=== PATIENT | male | born 1955 | race Caucasian/White ===

== ENCOUNTER → 2019-07-06 | Day surgery (SDC) | payer MEDICARE ==
[~2019-07-06] MED LIST: AMLO10TA8 PO; ATOR10TA60 PO; IPRA4AER IH; LIDOCAINE 1% Multi-Dose 20 ML VIAL. INJ ONE; LIDOCAINE 1%/EPI 1:100,000 20 ML VIAL. INJ ONE; LIDOCAINE 1%/EPI 1:100,000 20 ML VIAL. ONE; LISI10TA2 PO; METO50TA6 PO
[2019-07-06 11:50] VITALS: BP 139/61
--- NOTE | 2019-07-06 12:38 | PDOC4 ---
Operative Note Operative Note Date: 07/06/2019 Preoperative diagnosis: Left upper back mass Postoperative diagnosis: Same Procedure: Excision of back mass Surgeon: Shon Dictation: Patient is a 64-year-old was complained of a enlarging mass on his left upper back from proximally 17 years appears to be a sebaceous cyst. Seizure of excision was explained to the patient detail risk benefits were also discussed including bleeding infection alternatives to this procedure also dis cussed with the patient seemed to understand and gave both verbal and written consent had the procedure performed per patient was taken to the minors room in a sitting position the area was prepped and draped usual sterile fashion using ChloraPrep. Area around the mass was injected with 1% lidocaine with epinephrine once this was anesthetized elliptical incision was made with 15 blade scalpel was carried down through subcutaneous tissues excising the mass completely and sent it for pathology. The wound was then closed in 2 layers a deep layer single interrupted 3-0 Vicryl sutures and the skin was approximate for septic and a Monocryl Mastisol Steri-Strips and island dressing were applied. Patient tolerated procedure well and was discharged home in stable condition to follow up in 2 weeks estimate blood loss 5 mL CONSTANTINO SINGH MD Jul 06, 2019 12:38
--- NOTE | 2019-07-08 10:07 | PATHOLOGY ---
[facility] Accession Number: [id number] . 01 Material submitted: . back - MASS, BACK . 01 Clinical history: . Sebaceous cyst back . 02 Diagnosis: Skin and subcutaneous tissue, back mass, excision: - Follicular cyst, infundibular type. . ([facility]:mm; 07/07/2019) [facility] 07/07/2019 1645 Local . 02 Comment: There is no evidence of malignancy. . ([facility]:mm; 07/07/2019) . 02 Electronically signed: . Benny Roberto MD, Pathologist NPI- [id number] . 01 Gross description: . The specimen is received in formalin, labeled "Adolfo, Mickey, mass back" and consists of an unoriented pink-gallegos skin ellipse measuring 4.4 x 2.3 cm excised to a depth of 1.0 cm. Present on the surface is a pink-gallegos nodule with a central pore measuring 0.4 x 0.4 cm with protruding gallegos sebaceous material. Sectioning reveals a cyst containing soft gallegos-brown material measuring 2.8 x 2.3 cm. It Programmer sections are submitted in A1-A2. ([facility]; 07/06/2019) SY[facility]/SYU 07/06/2019 1718 Local . 02 Pathologist provided ICD-10: L72.9 . 02 CPT . 341360 Specimen Comment: A courtesy copy of this report has been sent to [phone], [phone] Specimen Comment: [id number] Specimen Comment: Report sent to / DR BILLINGSLEY Performed at: [address], [place], [place] [id number] MD Prasanth Arauz MD Phone: [phone] Performed at: 02 [facility] [address] [place], [place] [id number] MD Benny Roberto MD Phone: [phone]
== END ==
LOC: SURG 11:11
PROVIDERS: ATTEND Surgery
DX: R22.2 Localized swelling, mass and lump, trunk (principal); L72.8 Other follicular cysts of the skin and subcutaneous tissue; I10 Essential (primary) hypertension; E78.00 Pure hypercholesterolemia, unspecified; J45.909 Unspecified asthma, uncomplicated; E66.3 Overweight; Z68.26 Body mass index [BMI] 26.0-26.9, adult
CPT/HCPCS: 11406; 12032; 88304; J3490

== ENCOUNTER → 2019-07-21 | Day surgery (SDC) | payer MEDICARE, OTHER ==
[~2019-07-21] MED LIST changes: +IV RINGERS,LACTATED 1000ML 1,000 ML IV SCH; -LIDOCAINE 1% Multi-Dose 20 ML VIAL. INJ ONE; -LIDOCAINE 1%/EPI 1:100,000 20 ML VIAL. INJ ONE; -LIDOCAINE 1%/EPI 1:100,000 20 ML VIAL. ONE; +PROPOFOL 40 ML IV ONE
[2019-07-21 07:58] VITALS: BP 112/58
--- NOTE | 2019-07-21 09:49 | CONS ---
DATE OF CONSULTATION: 07/21/2019 REFERRING PHYSICIAN: Jonathan Ackerman MD REASON FOR CONSULTATION: History of colonic polyps and family history of colon cancer. HISTORY OF PRESENT ILLNESS: A 64-year-old male whose past medical history is significant for hypertension and hyperlipidemia as well as colonic polyps, is seen for interval exam. Bowel habits have been regular without diarrhea or constipation. There has been no melena and/or hematochezia. Weight and appetite are stable. He is otherwise without additional complaints. PAST MEDICAL HISTORY: Colonic polyps, hypertension and hyperlipidemia. ALLERGIES: TO PENICILLIN. MEDICATIONS: Include amlodipine, atorvastatin, albuterol, lisinopril and metoprolol. FAMILY AND SOCIAL HISTORY: Significant for colon cancer with his mother. SOCIAL HISTORY: He is a nonsmoker, nondrinker. PAST SURGICAL HISTORY: Tonsillectomy. REVIEW OF SYSTEMS: As per records. PHYSICAL EXAMINATION: GENERAL: Reveals a well-nourished, well-developed male who is alert, cooperative, in no acute distress. VITAL SIGNS: Temperature 98, pulse 80 and respiratory rate 18. HEENT: Normocephalic, atraumatic head. Pupils and extraocular muscles are not tested. Sclerae are anicteric. NECK: Supple. LUNGS: Clear. CARDIOVASCULAR: Reveals an S1, S2 without S3, S4 or appreciable murmur. ABDOMEN: Reveals soft abdomen, normal bowel sounds, without appreciable hepatosplenomegaly. EXTREMITIES: Reveals no cyanosis, clubbing or edema. IMPRESSION: History of colonic polyps. Surveillance exam is recommended at this time with a family history of colon cancer. Risks and benefits have been discussed with the patient including risk of hemorrhage and perforation requiring operation and he is willing to proceed. ISAAC RAMON MD DR: TERESA/bob JOB#: [id number] / [id number] [facility] Jonathan Ackerman
== END ==
LOC: ENDOS 06:08
PROVIDERS: ATTEND Internal Medicine Gastroenterology
DX: Z12.11 Encounter for screening for malignant neoplasm of colon (principal); K57.30 Diverticulosis of large intestine without perforation or abscess without bleeding; K64.0 First degree hemorrhoids; I10 Essential (primary) hypertension; E78.5 Hyperlipidemia, unspecified; Z86.010 Personal history of colon polyps; Z80.0 Family history of malignant neoplasm of digestive organs; Z88.0 Allergy status to penicillin; Z98.890 Other specified postprocedural states
CPT/HCPCS: G0105; J2704; 45378